=== PATIENT | female | born 1980 | race Caucasian/White ===

== ENCOUNTER → 2016-05-02 | Outpatient (CLI) | payer OTHER ==
[~2016-05-02] MED LIST: /DULO30CA OR; /THIA10TA OR; ABIL10TA OR; ACET65TA OR; BCP PO; BUPRPOW2 SL; CLEO300C OR; DEPA500T OR; DEPA500T2 OR; EFFE75CA75 OR; FOLI5CAP OR; IBUP600T OR; LAMI25TA OR; LITHIUM PO; SUBOXONE SL; THORAZINE PO; TRAZ100T OR; suboxone PO
[2016-05-02 16:00] LABS: FOLLICLE STIMULATING HORMONE 9.2 mIU/mL; PROLACTIN 6.3 NG/ML
== END ==
LOC: M LAB 13:28
PROVIDERS: ATTEND Family Medicine Addiction Medicine
DX: N91.1 Secondary amenorrhea (principal)

== ENCOUNTER → 2016-05-02 | Outpatient (CLI) | payer OTHER ==
[2016-05-02 15:25] LABS: THYROXINE (T4) 13.4 UG/DL (4.5-12.0)
== END ==
LOC: M LAB 13:32
PROVIDERS: ATTEND Nurse Practitioner Psychiatric/Mental Health
DX: F32.9 Major depressive disorder, single episode, unspecified (principal)

== ENCOUNTER 2016-09-26 15:55 | Emergency (ER) | payer OTHER ==
[~2016-09-26] VITALS: Ht 162.6 cm; Wt 56.2 kg
[2016-09-26] MEDS ORDERED: DRIS50002 PO (16:06)
[2016-09-26] MEDS ORDERED: CETI10TA PO (16:06)
[2016-09-26] MEDS ORDERED: LEVO25TA5 PO (16:06)
[2016-09-26] MEDS ORDERED: LINZ290C PO (16:06)
[2016-09-26] MEDS ORDERED: BUPIVACAINE HCL 0.25% 10 ML VIAL As Ordered ONE (16:07)
[2016-09-26] MEDS ORDERED: NABU50TA PO (16:07)
[2016-09-26] MEDS ORDERED: ONDANSETRON 4MG/2ML VIAL (J2405) IV ONE (16:30)
[2016-09-26] MEDS ORDERED: MORPHINE 4 MG/ML 1ML SYRINGE IV ONE (16:30)
--- NOTE | 2016-09-26 16:40 | REP ---
LEFT WRIST SERIES: Four views of the left wrist were performed. There is a comminuted intraarticular fracture of the distal radius with posterior displacement and angulation. There is a fracture of the ulnar styloid process. Signed by Tigre Rodriguez MD 09/27/2016 03:33 P
[2016-09-26] MEDS ORDERED: MIDAZOLAM INJ 2 MG/2 ML VIAL (J2250) IV STA (16:54)
[2016-09-26] MEDS ORDERED: LIDOCAINE 1% MDV 20ML VIAL IM ONE (17:00)
[2016-09-26] MEDS ORDERED: NS 1,000 ML IV SCH (17:10)
[2016-09-26] MEDS ORDERED: PROPOFOL 200 MG/20 ML VIAL As Ordered ONE (17:10)
[2016-09-26] MEDS ORDERED: BUPIVACAINE HCL 0.25% 10 ML VIAL SC ONE (17:15)
[2016-09-26] MEDS: PROPOFOL 200 MG/20 ML VIAL IV PRN ×3 (17:15→17:17)
[2016-09-26] MEDS ORDERED: ULTR50TA PO (17:49)
--- NOTE | 2016-09-26 17:55 | REP ---
LEFT WRIST, TWO VIEWS: HISTORY: Postreduction. COMPARISON: 4:24 pm, 09/26/2016 A cast is present obscuring detail. The patient is status post reduction of a comminuted interarticular fracture of the distal radius. There is a fracture of the ulnar styloid process. There is anatomic alignment. IMPRESSION: The patient is status post reduction of a comminuted fracture of the distal radius. There is anatomic alignment. Signed by Petey Velazquez MD 09/26/2016 05:56 P
[2016-09-26 18:42] VITALS: BP 102/61
--- NOTE | 2016-09-27 16:23 | ER ---
DATE OF CONSULTATION: 09/26/2016 CHIEF COMPLAINT: Left wrist pain. HISTORY OF PRESENT ILLNESS: This is a 35-year-old female who was rollerblading and fell onto her outstretched left upper extremity, fracturing it. She had significant pain and deformity and came to the emergency room for further evaluation. She is an avid athlete, currently in training for a half marathon, and is frustrated with this situation. ALLERGIES: Unknown. MEDICAL HISTORY: 1. She has had some sort of a seizure disorder in the past. 2. She has issues with depression. 3. Hypothyroidism. 4. Migraines. SURGICAL HISTORY: She had plastic surgery as a child on her face after a cat injury. MEDICATIONS: Include: - Lamictal 25 mg twice daily - history of use of Suboxone 10 mg sublingual daily - cetirizine - levothyroxine - Linzess - vitamin D - nabumetone REVIEW OF SYSTEMS: She is only complaining of left upper extremity pain. Her psychiatric issues have been stable. She is not complaining of worsening migraines or neurological issues. She is not complaining of neck or back or chest pain. She is not complaining of abdominal pain. She is not complaining of integument issues. Previous history of gastrointestinal (GI) constipation has been managed with anticonstipation medications. CLINICAL EXAMINATION: Alert, oriented, and cooperative. Mood and affect are appropriate. She is a pleasant 35-year-old female, appears to be younger than her stated age, with healthy skin in face, upper and lower extremities. Body habitus is athletic. Left upper extremity there is deformity, decreased sensation in the palm of the hand. No open wounds. Some small abrasions on the palm of the hand. Elbow appears to be uninvolved. IMAGING STUDIES: Reflect some comminution and distal radius fracture quite significantly displaced as well as angulated. IMPRESSION: Two-part distal radius fracture, displaced, angulated. RECOMMENDATIONS: Talked to the patient about different treatment options ranging from closed reduction and casting to operative intervention. In my opinion, closed reduction and casting is appropriate right now and operative intervention potentially could be considered later depending on the reduction. She agrees. I coordinated with Dr. Bustillo and the emergency room (ER) personnel. Dr. Bustillo administered conscious sedation which the patient tolerated well and I implemented a closed reduction of the left upper extremity displaced distal radius fracture. I placed a sugar tong splint. Postreduction imaging studies reflect excellent reduction of the angular deformity, still some step-off on the lateral, anatomic appearance on the anteroposterior (AP). IMPRESSION: Acceptable reduction after distal radius displaced fracture closed reduction. RECOMMENDATIONS: We will plan to see the patient in the office in a few days, imaging studies, can consider whether or not to move forward with surgery versus going with a long arm cast. Discussed pain control options with the physician assistant casino shift manager in the emergency department (ED). Patient is comfortable with our plan. For further details, please refer to the medical record.
== END 2016-09-26 18:42 | disposition home or self-care (01) ==
LOC: M ED 16:40
DX: S52.532A Colles' fracture of left radius, initial encounter for closed fracture (principal); S52.255A Nondisplaced comminuted fracture of shaft of ulna, left arm, initial encounter for closed fracture; W19.XXXA Unspecified fall, initial encounter; Y92.410 Unspecified street and highway as the place of occurrence of the external cause; Y93.51 Activity, roller skating (inline) and skateboarding; Y99.9 Unspecified external cause status; F17.200 Nicotine dependence, unspecified, uncomplicated; Z79.899 Other long term (current) drug therapy; Z88.0 Allergy status to penicillin

== ENCOUNTER → 2016-11-09 | Outpatient (CLI) | payer OTHER ==
[~2016-11-09] MED LIST changes: +CETI10TA PO; +DRIS50002 PO; +FLON1SPR; +LEVO25TA5 PO; +LINZ290C PO; +NABU500T PO; +ULTR50TA8 PO
[2016-11-09 11:26] LABS: BASO # 0.1 K/mm3 (0.0-0.2); EOS # 0.2 K/mm3 (0.0-0.50); EOS % 2.6 % (0.0-3.0); LARGE UNSTAINED CELL # 0.2 K/mm3 (0.0-0.4); LARGE UNSTAINED CELL % 3.6 % (0.0-4.0); MEAN CORPUSCULAR HEMOGLOBIN 29.5 pg (27.0-33.0); MEAN CORPUSCULAR HGB CONC 34.3 g/dl (32.0-36.5); MONO # 0.5 K/mm3 (0.0-0.8); MONO % 8.8 % (0.0-5.0); PLATELET COUNT, AUTOMATED 214 k/mm3 (150-450); RED CELL DISTRIBUTION WIDTH 13.4 % (11.5-14.5); WHITE BLOOD COUNT 5.7 K/mm3 (4.0-10.0)
== END ==
LOC: M LAB 10:21
PROVIDERS: ATTEND Family Medicine Addiction Medicine
DX: E61.1 Iron deficiency (principal)

== ENCOUNTER → 2016-11-09 | Outpatient (CLI) | payer OTHER | LOC: M LAB 10:18 | PROVIDERS: ATTEND Nurse Practitioner Family | DX: N91.1 Secondary amenorrhea (principal) ==

== ENCOUNTER → 2016-11-27 | Outpatient (CLI) | payer OTHER ==
[2016-11-27 08:53] LABS: FOLLICLE STIMULATING HORMONE 10.1 mIU/mL; FREE T4 1.76 NG/DL (0.76-1.46); LUTEINIZING HORMONE 1.9 mIU/mL
== END ==
LOC: M LAB 07:48
PROVIDERS: ATTEND Physician Assistant
DX: N91.1 Secondary amenorrhea (principal)

== ENCOUNTER → 2016-11-28 | Outpatient (CLI) | payer OTHER ==
--- NOTE | 2016-11-28 17:46 | REP ---
HISTORY: Amenorrhea for 1-1/2 years. COMPARISON: None. Transvesical and transvaginal imaging was obtained. The uterus measures 6.2 x 2.5 x 4.1 cm. The parenchymal echo pattern is within normal limits. The endometrial echo complex is smooth and unremarkable appearing measuring between 2 and 3 mm in its greatest thickness. There is no free fluid in the cul-de-sac. The right ovary measures 3.4 x 1.6 x 2.8 cm and is within normal limits. Left ovary measures 3.1 x 1.5 x 3.1 cm and is within normal limits. Urinary bladder measures 10 x 7 x 11 cm. IMPRESSION: Pelvic ultrasonography is within normal limits. Signed by Inocente Beauchamp DO 11/28/2016 06:58 P
== END ==
LOC: M RAD 15:22
PROVIDERS: ATTEND Physician Assistant
DX: N91.1 Secondary amenorrhea (principal)

== ENCOUNTER → 2017-01-14 | Outpatient (REF) | payer OTHER ==
[2017-01-14 13:50] LABS: PROGESTERONE < 0.2 NG/ML
[2017-01-14 13:52] LABS: ESTRADIOL 63.1 PG/ML
== END ==
LOC: M LABDRAW1 11:49
PROVIDERS: ATTEND Internal Medicine Endocrinology, Diabetes & Metabolism
DX: E28.8 Other ovarian dysfunction (principal)

== ENCOUNTER → 2017-02-04 | Outpatient (REF) | payer OTHER | LOC: M LAB REF 09:15 | PROVIDERS: ATTEND Physician Assistant | DX: J02.9 Acute pharyngitis, unspecified (principal) ==

== ENCOUNTER 2017-02-05 16:17 | Emergency (ER) | payer OTHER ==
[~2017-02-05] VITALS: Ht 162.6 cm; Wt 55.9 kg
[~2017-02-05 16:17] MED LIST changes: -FLON1SPR
[2017-02-05] MEDS ORDERED: FLON1SPR (17:54)
[2017-02-05 18:12] VITALS: BP 113/62
== END 2017-02-05 18:17 | disposition home or self-care (01) ==
LOC: M ED 16:17
DX: J02.9 Acute pharyngitis, unspecified (principal); Z87.891 Personal history of nicotine dependence; Z79.899 Other long term (current) drug therapy; Z88.0 Allergy status to penicillin

== ENCOUNTER → 2017-07-02 | Outpatient (REF) | payer OTHER ==
[2017-07-02 15:31] LABS: BASO # 0.1 10^3/uL (0.0-0.2); BASO % 1.8 % (0.0-1.0); EOS # 0.1 10^3/uL (0.0-0.50); EOS % 1.8 % (0.0-3.0); HEMATOCRIT 37.3 % (36.0-47.0); HEMOGLOBIN 12.3 g/dl (12.0-16.0); IMMATURE GRANULOCYTE % 0.2 % (0-3.0); LYMPH # 2.5 10^3/uL (1.5-4.5); LYMPH % 50.6 % (24.0-44.0); MEAN CORPUSCULAR HEMOGLOBIN 28.3 pg (27.0-33.0); MEAN CORPUSCULAR VOLUME 85.7 fl (80.0-96.0); MONO # 0.5 10^3/uL (0.0-0.8); MONO % 10.4 % (0.0-5.0); NEUTROPHILS # 1.8 10^3/uL (1.8-7.7); NEUTROPHILS % 35.2 % (36.0-66.0); PLATELET COUNT, AUTOMATED 188 10^3/uL (150-450); RED BLOOD COUNT 4.35 10^6/uL (4.00-5.40); RED CELL DISTRIBUTION WIDTH 12.6 % (11.5-14.5)
[2017-07-02 15:53] LABS: ALBUMIN 3.9 GM/DL (3.2-5.2); ALBUMIN/GLOBULIN RATIO 1.39 (1.00-1.93); ALKALINE PHOSPHATASE 73 U/L (45-117); ALT/SGPT 33 U/L (12-78); ANION GAP 8 MEQ/L (8-16); AST/SGOT 34 U/L (7-37); BILIRUBIN,TOTAL 0.4 MG/DL (0.2-1.0); BLOOD UREA NITROGEN 8 MG/DL (7-18); CALCIUM LEVEL 8.5 MG/DL (8.5-10.1); CARBON DIOXIDE LEVEL 28 MEQ/L (21-32); CHLORIDE LEVEL 104 MEQ/L (98-107); CHOLESTEROL LEVEL 151 MG/DL (<200); CHOLESTEROL RISK RATIO 2.097 (<5); CREATININE FOR GFR 0.95 MG/DL (0.55-1.30); GLOMERULAR FILTRATION RATE > 60.0 (>60); GLUCOSE, FASTING 83 MG/DL (70-100); HDL CHOLESTEROL 72 MG/DL (>40); IRON (FE) 55 UG/DL (50-170); NON-HDL-C 79 MG/DL; POTASSIUM SERUM 4.4 MEQ/L (3.5-5.1); SODIUM LEVEL 140 MEQ/L (136-145); TOTAL PROTEIN 6.7 GM/DL (6.4-8.2); TRIGLYCERIDES LEVEL 55 MG/DL (<150)
== END ==
LOC: M LABDRAW1 13:59
DX: E61.1 Iron deficiency (principal); E78.5 Hyperlipidemia, unspecified

== ENCOUNTER → 2017-07-19 | Outpatient (CLI) | payer OTHER ==
[~2017-07-19] MED LIST changes: -/DULO30CA OR; -/THIA10TA OR; -ABIL10TA OR; -ACET65TA OR; -BCP PO; -BUPRPOW2 SL; -CETI10TA PO; -CLEO300C OR; +CONRAY-43 43% 50ML VIAL (Q9960) As Ordered; -DEPA500T OR; -DEPA500T2 OR; -DRIS50002 PO; -EFFE75CA75 OR; -FOLI5CAP OR; -IBUP600T OR; -LAMI25TA OR; -LEVO25TA5 PO; -LINZ290C PO; -LITHIUM PO; -NABU500T PO; +PROHANCE 279.3MG/ML 5ML VIAL (A9576) As Ordered; -SUBOXONE SL; -THORAZINE PO; -TRAZ100T OR; -ULTR50TA8 PO; -suboxone PO
== END ==
LOC: M RADPRO 06:29
DX: M25.551 Pain in right hip (principal); M70.61 Trochanteric bursitis, right hip; M24.151 Other articular cartilage disorders, right hip; M16.11 Unilateral primary osteoarthritis, right hip; Z88.0 Allergy status to penicillin
CPT/HCPCS: 27093

== ENCOUNTER → 2017-11-28 | Outpatient (REF) | payer OTHER ==
[2017-11-28 14:00] LABS: BASO # 0.1 10^3/uL (0.0-0.2); BASO % 0.9 % (0.0-1.0); EOS # 0.1 10^3/uL (0.0-0.50); EOS % 2.1 % (0.0-3.0); HEMATOCRIT 38.3 % (36.0-47.0); HEMOGLOBIN 12.6 g/dl (12.0-15.5); IMMATURE GRANULOCYTE % 0.4 % (0-3.0); LYMPH # 1.1 10^3/uL (1.5-4.5); LYMPH % 19.4 % (24.0-44.0); MEAN CORPUSCULAR HEMOGLOBIN 29.4 pg (27.0-33.0); MEAN CORPUSCULAR HGB CONC 32.9 g/dl (32.0-36.5); MEAN CORPUSCULAR VOLUME 89.3 fl (80.0-96.0); MONO # 0.7 10^3/uL (0.0-0.8); MONO % 12.8 % (0.0-5.0); NEUTROPHILS # 3.6 10^3/uL (1.8-7.7); NEUTROPHILS % 64.4 % (36.0-66.0); PLATELET COUNT, AUTOMATED 177 10^3/uL (150-450); RED BLOOD COUNT 4.29 10^6/uL (4.00-5.40); RED CELL DISTRIBUTION WIDTH 12.6 % (11.5-14.5); WHITE BLOOD COUNT 5.6 10^3/uL (4.0-10.0)
[2017-11-28 14:32] LABS: ALBUMIN 3.7 GM/DL (3.2-5.2); ALBUMIN/GLOBULIN RATIO 1.16 (1.00-1.93); ALKALINE PHOSPHATASE 98 U/L (45-117); ALT/SGPT 31 U/L (12-78); ANION GAP 8 MEQ/L (8-16); AST/SGOT 27 U/L (7-37); BILIRUBIN,TOTAL 0.6 MG/DL (0.2-1.0); BLOOD UREA NITROGEN 10 MG/DL (7-18); CALCIUM LEVEL 8.2 MG/DL (8.5-10.1); CARBON DIOXIDE LEVEL 28 MEQ/L (21-32); CHLORIDE LEVEL 104 MEQ/L (98-107); CHOLESTEROL LEVEL 170 MG/DL (<200); CHOLESTEROL RISK RATIO 2.537 (<5); CREATININE FOR GFR 0.87 MG/DL (0.55-1.30); GLOMERULAR FILTRATION RATE > 60.0 (>60); GLUCOSE, FASTING 91 MG/DL (70-100); HDL CHOLESTEROL 67 MG/DL (>40); IRON (FE) 80 UG/DL (50-170); LDL CHOLESTEROL 69.2 MG/DL (<100); NON-HDL-C 103 MG/DL; POTASSIUM SERUM 4.2 MEQ/L (3.5-5.1); SODIUM LEVEL 140 MEQ/L (136-145); TOTAL PROTEIN 6.9 GM/DL (6.4-8.2); TRIGLYCERIDES LEVEL 169 MG/DL (<150)
== END ==
LOC: M LAB REF 12:58
DX: E78.5 Hyperlipidemia, unspecified (principal); E61.1 Iron deficiency
CPT/HCPCS: 83540

== ENCOUNTER 2017-12-16 06:53 | Emergency (ER) | payer OTHER | END 2017-12-16 09:36 | disposition home or self-care (01) | LOC: M ED 06:53 | DX: M79.605 Pain in left leg (principal); G43.909 Migraine, unspecified, not intractable, without status migrainosus; R56.9 Unspecified convulsions; E03.9 Hypothyroidism, unspecified; D64.9 Anemia, unspecified; F41.9 Anxiety disorder, unspecified; F32.9 Major depressive disorder, single episode, unspecified; F43.10 Post-traumatic stress disorder, unspecified; Z79.899 Other long term (current) drug therapy; Z88.0 Allergy status to penicillin | CPT/HCPCS: 93971 ==

== ENCOUNTER 2017-12-30 07:56 | Outpatient (RCR) | payer OTHER | END 2018-01-19 | LOC: M PT 07:56 | DX: S76.312D Strain of muscle, fascia and tendon of the posterior muscle group at thigh level, left thigh, subsequent encounter (principal) | CPT/HCPCS: 97110 ==

== ENCOUNTER → 2018-01-04 | Outpatient (CLI) | payer OTHER ==
[2018-01-04 09:11] LABS: HEMATOCRIT 40.1 % (36.0-47.0); HEMOGLOBIN 13.3 g/dl (12.0-15.5); MEAN CORPUSCULAR HEMOGLOBIN 28.5 pg (27.0-33.0); MEAN CORPUSCULAR HGB CONC 33.2 g/dl (32.0-36.5); MEAN CORPUSCULAR VOLUME 86.1 fl (80.0-96.0); PLATELET COUNT, AUTOMATED 200 10^3/uL (150-450); RED BLOOD COUNT 4.66 10^6/uL (4.00-5.40); RED CELL DISTRIBUTION WIDTH 12.7 % (11.5-14.5); WHITE BLOOD COUNT 7.3 10^3/uL (4.0-10.0)
[2018-01-04 09:54] LABS: ALBUMIN 4.1 GM/DL (3.2-5.2); ALBUMIN/GLOBULIN RATIO 1.24 (1.00-1.93); ALKALINE PHOSPHATASE 79 U/L (45-117); ALT/SGPT 25 U/L (12-78); ANION GAP 8 MEQ/L (8-16); AST/SGOT 28 U/L (7-37); BILIRUBIN,TOTAL 0.5 MG/DL (0.2-1.0); BLOOD UREA NITROGEN 9 MG/DL (7-18); CALCIUM LEVEL 8.6 MG/DL (8.5-10.1); CARBON DIOXIDE LEVEL 27 MEQ/L (21-32); CHLORIDE LEVEL 104 MEQ/L (98-107); CHOLESTEROL LEVEL 171 MG/DL (<200); CHOLESTEROL RISK RATIO 2.442 (<5); CREATININE FOR GFR 0.83 MG/DL (0.55-1.30); GLOMERULAR FILTRATION RATE > 60.0 (>60); GLUCOSE, FASTING 75 MG/DL (70-100); HDL CHOLESTEROL 70 MG/DL (>40); LDL CHOLESTEROL 87 MG/DL (<100); NON-HDL-C 101 MG/DL; POTASSIUM SERUM 3.7 MEQ/L (3.5-5.1); SODIUM LEVEL 139 MEQ/L (136-145); TOTAL PROTEIN 7.4 GM/DL (6.4-8.2); TRIGLYCERIDES LEVEL 71 MG/DL (<150)
[2018-01-04 10:42] LABS: ESTIMATED AVERAGE GLUCOSE 105 MG/DL (60-110); HEMOGLOBIN A1c 5.3 %
[2018-01-06 09:33] LABS: TOTAL 25(OH) VITAMIN D 102.6 NG/ML (30.0-100.0)
[2018-01-09 08:06] LABS: LAMOTRIGINE (LAMICTAL) 2.8 ug/mL (2.0-20.0)
== END ==
LOC: M LAB 08:47
DX: F31.9 Bipolar disorder, unspecified (principal)
CPT/HCPCS: 84443

== ENCOUNTER 2018-01-23 12:32 | Outpatient (RCR) | payer SELFPAY, OTHER | END 2018-02-19 | LOC: M PT 12:32 | DX: Z47.89 Encounter for other orthopedic aftercare (principal); M79.652 Pain in left thigh | CPT/HCPCS: 97110 ==

== ENCOUNTER → 2018-12-13 | Outpatient (CLI) | payer BC ==
[~2018-12-13] MED LIST changes: +/THIA10TA OR; +ABIL10TA OR; +ACET-683 PO; +ACET65TA OR; +BCP PO; +BUPRPOW2 SL; +CETI10TA PO; +CLEO300C OR; -CONRAY-43 43% 50ML VIAL (Q9960) As Ordered; +CYMB1CAP5 OR; +DEPA500T OR; +DEPA500T2 OR; +DRIS50003 PO; +EFFE75CA75 OR; +FLON1SPR; +FOLI5CAP OR; +IBUP-1114 PO; +IBUP600T OR; +KETO10TAB PO; +LAMI25TA OR; +LEVO25TA5 PO; +LINZ290C PO; +LITHIUM PO; +NABU-126 PO; -PROHANCE 279.3MG/ML 5ML VIAL (A9576) As Ordered; +SUBOXONE SL; +THORAZINE PO; +TRAZ100T OR; +ULTR50TA8 PO; +suboxone PO
[2018-12-13 08:48] LABS: BASO # 0.1 10^3/uL (0.0-0.2); BASO % 1.4 % (0.0-1.0); EOS # 0.2 10^3/uL (0.0-0.50); EOS % 3.4 % (0.0-3.0); HEMATOCRIT 40.3 % (36.0-47.0); HEMOGLOBIN 13.4 g/dl (12.0-15.5); LYMPH # 1.9 10^3/uL (1.5-4.5); LYMPH % 31.3 % (24.0-44.0); MEAN CORPUSCULAR HEMOGLOBIN 29.2 pg (27.0-33.0); MEAN CORPUSCULAR HGB CONC 33.3 g/dl (32.0-36.5); MEAN CORPUSCULAR VOLUME 87.8 fl (80.0-96.0); MONO # 0.7 10^3/uL (0.0-0.8); NEUTROPHILS # 3.1 10^3/uL (1.8-7.7); NEUTROPHILS % 51.6 % (36.0-66.0); PLATELET COUNT, AUTOMATED 214 10^3/uL (150-450); RED BLOOD COUNT 4.59 10^6/uL (4.00-5.40); WHITE BLOOD COUNT 5.9 10^3/uL (4.0-10.0)
[2018-12-13 09:20] LABS: ALBUMIN 3.7 GM/DL (3.2-5.2); ALT/SGPT 23 U/L (12-78); BILIRUBIN,TOTAL 0.5 MG/DL (0.2-1.0); BLOOD UREA NITROGEN 13 MG/DL (7-18); CALCIUM LEVEL 8.7 MG/DL (8.5-10.1); CARBON DIOXIDE LEVEL 31 MEQ/L (21-32); CHLORIDE LEVEL 103 MEQ/L (98-107); CHOLESTEROL LEVEL 187 MG/DL (<200); CHOLESTEROL RISK RATIO 2.671 (<5); CREATININE FOR GFR 0.81 MG/DL (0.55-1.30); FREE T4 1.42 NG/DL (0.76-1.46); GLOMERULAR FILTRATION RATE > 60.0 (>60); GLUCOSE, FASTING 90 MG/DL (70-100); HDL CHOLESTEROL 70 MG/DL (>40); LDL CHOLESTEROL 100 MG/DL (<100); NON-HDL-C 117 MG/DL; POTASSIUM SERUM 4.5 MEQ/L (3.5-5.1); SODIUM LEVEL 139 MEQ/L (136-145); TOTAL PROTEIN 6.6 GM/DL (6.4-8.2); TRIGLYCERIDES LEVEL 85 MG/DL (<150)
[2018-12-15 10:44] LABS: TOTAL 25(OH) VITAMIN D 89.9 NG/ML (30.0-100.0)
== END ==
LOC: M LAB 07:34
PROVIDERS: ATTEND Nurse Practitioner Family
DX: Z00.00 Encounter for general adult medical examination without abnormal findings (principal)

== ENCOUNTER → 2019-06-10 | Outpatient (REF) | payer BC ==
[2019-06-10 17:46] LABS: FREE T4 1.62 NG/DL (0.76-1.46); THYROID STIMULATING HORMONE 1.72 uIU/ML (0.358-3.740)
== END ==
LOC: M LAB REF 16:35
PROVIDERS: ATTEND Nurse Practitioner Adult Health
DX: E03.9 Hypothyroidism, unspecified (principal)

== ENCOUNTER → 2019-09-10 | Outpatient (REF) | payer BC ==
[2019-09-10 16:54] LABS: BASO # 0.1 10^3/uL (0.0-0.2); BASO % 1.5 % (0.0-1.0); EOS # 0.4 10^3/uL (0.0-0.5); EOS % 5.1 % (0.0-3.0); HEMATOCRIT 37.7 % (36.0-47.0); HEMOGLOBIN 12.8 g/dl (12.0-15.5); LYMPH # 2.8 10^3/uL (1.5-5.0); LYMPH % 36.5 % (24.0-44.0); MEAN CORPUSCULAR HEMOGLOBIN 30.1 pg (27.0-33.0); MEAN CORPUSCULAR VOLUME 88.7 fl (80.0-96.0); MONO # 0.8 10^3/uL (0.0-0.8); MONO % 10.7 % (0.0-5.0); NEUTROPHILS # 3.6 10^3/uL (1.5-8.5); NEUTROPHILS % 46.1 % (36.0-66.0); PLATELET COUNT, AUTOMATED 200 10^3/uL (150-450); RED BLOOD COUNT 4.25 10^6/uL (4.00-5.40); WHITE BLOOD COUNT 7.8 10^3/uL (4.0-10.0)
[2019-09-10 17:14] LABS: ALBUMIN 3.6 GM/DL (3.2-5.2); ALT/SGPT 21 U/L (12-78); BILIRUBIN,TOTAL 0.5 MG/DL (0.2-1.0); BLOOD UREA NITROGEN 13 MG/DL (7-18); CALCIUM LEVEL 8.2 MG/DL (8.5-10.1); CARBON DIOXIDE LEVEL 28 MEQ/L (21-32); CHLORIDE LEVEL 106 MEQ/L (98-107); CREATININE FOR GFR 0.76 MG/DL (0.55-1.30); GLOMERULAR FILTRATION RATE > 60.0 (>60); GLUCOSE, FASTING 95 MG/DL (70-100); POTASSIUM SERUM 3.8 MEQ/L (3.5-5.1); SODIUM LEVEL 138 MEQ/L (136-145); TOTAL PROTEIN 6.7 GM/DL (6.4-8.2)
== END ==
LOC: M LAB REF 16:03
PROVIDERS: ATTEND Family Medicine Addiction Medicine
DX: E03.9 Hypothyroidism, unspecified (principal); R53.83 Other fatigue

== ENCOUNTER → 2019-10-01 | Outpatient (REF) | payer BC ==
[2019-10-03 17:07] LABS: Lyme Disease IgG/IgM Antibodie <0.91 ISR (0.00-0.90); Lyme Disease IgM Ab Quantitati <0.80 index (0.00-0.79)
== END ==
LOC: M LAB REF 16:21
PROVIDERS: ATTEND Family Medicine Addiction Medicine
DX: R53.83 Other fatigue (principal)

== ENCOUNTER → 2020-01-01 | Outpatient (REF) | payer BC ==
[~2020-01-01] MED LIST changes: -NABU-126 PO; +NABU-51 PO
[2020-01-01 21:00] LABS: ALBUMIN 3.9 GM/DL (3.2-5.2); ALT/SGPT 30 U/L (12-78); BILIRUBIN,TOTAL 0.3 MG/DL (0.2-1.0); BLOOD UREA NITROGEN 19 MG/DL (7-18); CALCIUM LEVEL 9.3 MG/DL (8.5-10.1); CARBON DIOXIDE LEVEL 27 MEQ/L (21-32); CHLORIDE LEVEL 102 MEQ/L (98-107); CHOLESTEROL LEVEL 204 MG/DL (<200); CHOLESTEROL RISK RATIO 2.649 (<5); GLOMERULAR FILTRATION RATE > 60.0 (>60); GLUCOSE, FASTING 86 MG/DL (70-100); HDL CHOLESTEROL 77 MG/DL (>40); LDL CHOLESTEROL 78 MG/DL (<100); NON-HDL-C 127 MG/DL; SODIUM LEVEL 136 MEQ/L (136-145); TOTAL PROTEIN 7.3 GM/DL (6.4-8.2); TRIGLYCERIDES LEVEL 246 MG/DL (<150)
== END ==
LOC: M LAB REF 17:15
PROVIDERS: ATTEND Family Medicine Addiction Medicine
DX: Z13.220 Encounter for screening for lipoid disorders (principal); E03.9 Hypothyroidism, unspecified

== ENCOUNTER 2020-09-12 16:34 | Outpatient (RCR) | payer BC ==
[~2020-09-12 16:34] MED LIST changes: -NABU-51 PO; +NABU-71 PO
== END 2020-09-19 ==
LOC: M PT 16:34
PROVIDERS: ATTEND Orthopaedic Surgery
DX: M76.31 Iliotibial band syndrome, right leg (principal)

== ENCOUNTER 2020-09-21 13:25 | Outpatient (RCR) | payer BC | END 2020-10-19 | LOC: M PT 13:25 | PROVIDERS: ATTEND Orthopaedic Surgery | DX: M76.31 Iliotibial band syndrome, right leg (principal) ==

== ENCOUNTER → 2022-06-27 | Outpatient (REF) | payer OTHER, BC ==
[2022-06-27 13:28] LABS: BASO # 0.1 10^3/uL (0.0-0.2); BASO % 1.2 % (0.0-1.0); EOS # 0.2 10^3/uL (0.0-0.5); EOS % 2.3 % (0.0-3.0); HEMATOCRIT 39.7 % (36.0-47.0); HEMOGLOBIN 12.7 g/dl (12.0-15.5); LYMPH # 2.5 10^3/uL (1.5-5.0); LYMPH % 33.4 % (24.0-44.0); MEAN CORPUSCULAR HEMOGLOBIN 28.7 pg (27.0-33.0); MEAN CORPUSCULAR VOLUME 89.6 fl (80.0-96.0); MONO # 0.8 10^3/uL (0.0-0.8); MONO % 10.9 % (2.0-8.0); NEUTROPHILS # 3.9 10^3/uL (1.5-8.5); NEUTROPHILS % 51.9 % (36.0-66.0); PLATELET COUNT, AUTOMATED 214 10^3/uL (150-450); RED BLOOD COUNT 4.43 10^6/uL (4.00-5.40); WHITE BLOOD COUNT 7.5 10^3/uL (4.0-10.0)
[2022-06-27 14:18] LABS: ALBUMIN 3.9 G/DL (3.2-5.2); ALKALINE PHOSPHATASE 73 U/L (46-116); ALT/SGPT 23 U/L (7.0-40); AST/SGOT 36 U/L (<34); BILIRUBIN,TOTAL 0.4 MG/DL (0.3-1.2); BLOOD UREA NITROGEN 20 MG/DL (9-23); CALCIUM LEVEL 8.8 MG/DL (8.5-10.1); CARBON DIOXIDE LEVEL 27 MMOL/L (20-31); CHLORIDE LEVEL 103 MMOL/L (98-107); CHOLESTEROL LEVEL 167 MG/DL (<200); CHOLESTEROL RISK RATIO 2.49 (<5); CREATININE FOR GFR 0.77 MG/DL (0.55-1.30); GLOMERULAR FILTRATION RATE > 60.0 (>58); GLUCOSE, FASTING 73 MG/DL (60-100); HDL CHOLESTEROL 66.9 MG/DL (>40); LDL CHOLESTEROL 84.1 MG/DL (<100); NON-HDL-C 100.1 MG/DL; POTASSIUM SERUM 4.1 MMOL/L (3.5-5.1); SODIUM LEVEL 139 MMOL/L (136-145); THYROID STIMULATING HORMONE 2.448 uIU/ML (0.55-4.78); TOTAL PROTEIN 6.8 G/DL (5.7-8.2); TRIGLYCERIDES LEVEL 80 MG/DL (<150); VITAMIN B12 LEVEL 760 PG/ML (211-911)
== END ==
LOC: M LAB REF 12:24
PROVIDERS: ATTEND Family Medicine Addiction Medicine
DX: Z13.228 Encounter for screening for other metabolic disorders (principal)

== ENCOUNTER → 2022-08-01 | Outpatient (CLI) | payer OTHER | LOC: M RAD 08:21 | PROVIDERS: ATTEND Family Medicine Addiction Medicine | DX: R20.2 Paresthesia of skin (principal); M46.97 Unspecified inflammatory spondylopathy, lumbosacral region ==

== ENCOUNTER → 2022-09-19 | Outpatient (RCR) | payer OTHER | LOC: M PT 09-03 09:23 | PROVIDERS: ATTEND Student in an Organized Health Care Education/Training Program | DX: M76.62 Achilles tendinitis, left leg (principal) ==

== ENCOUNTER 2022-10-15 07:00 | Outpatient (RCR) | payer OTHER | END 2022-10-19 | LOC: M PT 07:00 | PROVIDERS: ATTEND Student in an Organized Health Care Education/Training Program | DX: M76.62 Achilles tendinitis, left leg (principal) ==

== ENCOUNTER → 2024-01-20 | Outpatient (REF) | payer OTHER ==
[2024-01-20 12:52] LABS: ALKALINE PHOSPHATASE 86 U/L (46-116); ALT/SGPT 19 U/L (7.0-40); AST/SGOT 36 U/L (<34); BILIRUBIN,TOTAL 0.6 MG/DL (0.3-1.2); BLOOD UREA NITROGEN 15 MG/DL (9-23); CALCIUM LEVEL 9.4 MG/DL (8.5-10.1); CARBON DIOXIDE LEVEL 30 MMOL/L (20-31); CHLORIDE LEVEL 104 MMOL/L (98-107); CHOLESTEROL LEVEL 189 MG/DL (<200); CHOLESTEROL RISK RATIO 2.63 (<5); GLOMERULAR FILTRATION RATE > 60.0 (>58); GLUCOSE, FASTING 90 MG/DL (60-100); HDL CHOLESTEROL 71.7 MG/DL (>40); LDL CHOLESTEROL 104.3 MG/DL (<100); NON-HDL-C 117.3 MG/DL; POTASSIUM SERUM 3.9 MMOL/L (3.5-5.1); SODIUM LEVEL 138 MMOL/L (136-145); THYROID STIMULATING HORMONE 1.236 uIU/ML (0.55-4.78); TOTAL PROTEIN 7.2 G/DL (5.7-8.2); TRIGLYCERIDES LEVEL 65 MG/DL (<150)
[2024-01-20 12:53] LABS: FOLLICLE STIMULATING HORMONE 16.2 mIU/ML; LUTEINIZING HORMONE 5.3 mIU/ML
[2024-01-20 13:03] LABS: HEMATOCRIT 39.2 % (36.0-47.0); MEAN CORPUSCULAR HEMOGLOBIN 28.8 pg (27.0-33.0); MEAN CORPUSCULAR HGB CONC 33.2 g/dl (32.0-36.5); MEAN CORPUSCULAR VOLUME 86.9 fl (80.0-96.0); PLATELET COUNT, AUTOMATED 190 10^3/uL (150-450); RED BLOOD COUNT 4.51 10^6/uL (4.00-5.40); WHITE BLOOD COUNT 7.2 10^3/uL (4.0-10.0)
== END ==
LOC: M LAB REF 11:52
PROVIDERS: ATTEND Family Medicine Addiction Medicine
DX: N92.6 Irregular menstruation, unspecified (principal); E03.9 Hypothyroidism, unspecified

== ENCOUNTER → 2024-07-07 | Outpatient (CLI) | payer OTHER | LOC: M RAD 08:09 | PROVIDERS: ATTEND Family Medicine Addiction Medicine | DX: M25.551 Pain in right hip (principal) ==

== ENCOUNTER → 2024-09-07 | Outpatient (CLI) | payer OTHER | LOC: M PLAIMG 07:39 | PROVIDERS: ATTEND Family Medicine Addiction Medicine | DX: M51.26 Other intervertebral disc displacement, lumbar region (principal); M47.26 Other spondylosis with radiculopathy, lumbar region; M48.061 Spinal stenosis, lumbar region without neurogenic claudication ==

== ENCOUNTER → 2025-01-04 | Outpatient (CLI) | payer OTHER | LOC: M WUC 13:18 | PROVIDERS: ATTEND Nurse Practitioner Family | DX: M25.572 Pain in left ankle and joints of left foot (principal); M25.571 Pain in right ankle and joints of right foot; M79.89 Other specified soft tissue disorders ==

== ENCOUNTER → 2025-04-06 | Outpatient (CLI) | payer OTHER | LOC: M WUC 10:03 | PROVIDERS: ATTEND Physician Assistant | DX: M25.572 Pain in left ankle and joints of left foot (principal); S82.52XA Displaced fracture of medial malleolus of left tibia, initial encounter for closed fracture; X58.XXXA Exposure to other specified factors, initial encounter; Y92.9 Unspecified place or not applicable; Y93.9 Activity, unspecified; Y99.9 Unspecified external cause status ==